=== PATIENT | male | born 1960 | race Native Hawaiian/Other Pacific Islander ===

== ENCOUNTER 2020-11-18 16:56 | Emergency (ER) | payer OTHER ==
[~2020-11-18] VITALS: Ht 172.7 cm; Wt 89.1 kg
[2020-11-18 16:56] VITALS: BP 175/88; TEMP 99.5
[2020-11-18 17:30] LABS: PLATELET COUNT 377 K/uL (142-355)
[2020-11-18 17:38] LABS: POTASSIUM 4.4 mmol/L (3.6-5.2)
[2020-11-18] MEDS ORDERED: ASPIRIN PO (22:12)
[2020-11-18] MEDS ORDERED: LIPITOR10 MG PO (22:13)
[2020-11-18] MEDS ORDERED: CLON1TAB18 PO (22:19)
[2020-11-18] MEDS ORDERED: B-12 COMPL1000 MCG/M INJ (22:21)
[2020-11-18] MEDS ORDERED: DIVA250T2 PO (22:24)
[2020-11-18] MEDS ORDERED: ACID CONTROL20 MG PO (22:26)
[2020-11-18] MEDS ORDERED: EQL IRON SUPPL325 M1 PO (22:27)
[2020-11-18] MEDS ORDERED: JANUVIA100 MG PO (22:31)
[2020-11-18] MEDS ORDERED: LISITAB PO (22:34)
[2020-11-18] MEDS ORDERED: METF100038 PO (22:36)
[2020-11-18] MEDS ORDERED: OLANZAPINE10 M2 PO (22:39)
[2020-11-18] MEDS ORDERED: SEROQUEL400 MG PO (22:42)
[2020-11-18] MEDS ORDERED: RISP1TAB PO (22:44)
[2020-11-18] MEDS ORDERED: VITAMIN B-121000 MC2 PO (22:47)
[2020-11-18] MEDS ORDERED: TYLENOL325 MG PO (22:49)
== END 2020-11-18 18:23 | disposition still patient (30) ==
LOC: ED 17:12
PROVIDERS: Hospitalist
DX: F25.8 Other schizoaffective disorders (principal); Z11.52 Encounter for screening for COVID-19; Z04.6 Encounter for general psychiatric examination, requested by authority
CPT/HCPCS: 80053; 80164; 85007; 85027; 87635; 93005; 99283; J0696; U0003

== ENCOUNTER 2021-03-19 11:05 | Emergency (ER) | payer OTHER ==
[~2021-03-19] VITALS: Ht 172.7 cm; Wt 89.8 kg
[2021-03-19 11:05] VITALS: BP 109/64; TEMP 97.6
[~2021-03-19 11:05] MED LIST: ACID CONTROL20 MG PO; ARIPIPRAZOLE10 MG PO; ASPIRIN PO; B-12 COMPL1000 MCG/M INJ; BUSP15TAB2 PO; CHOL100034 PO; CLON0.5T36 PO; CLON1TAB18 PO; DIVA250T PO; DIVA250T2 PO; EQL IRON SUPPL325 M1 PO; FLUOXETINE20 MG PO; JANUVIA100 MG PO; LIPITOR10 MG PO; LISITAB PO; METF100038 PO; OLANZAPINE10 M2 PO; RISP1TAB PO; SEROQUEL400 MG PO; TYLENOL325 MG PO; VITAMIN B-121000 MC2 PO
[2021-03-19 11:35] LABS: PLATELET COUNT 351 K/uL (142-355)
[2021-03-19 11:41] LABS: POTASSIUM 3.9 mmol/L (3.6-5.2)
[2021-03-19] MEDS ORDERED: VITAMIN D350000 UNIT PO (13:00)
[2021-03-19] MEDS ORDERED: CLON1TAB18 PO (13:01)
[2021-03-19] MEDS ORDERED: SERT100T PO (13:02)
[2021-03-19] MEDS ORDERED: CRESTOR5 MG PO (13:03)
[2021-03-19] MEDS ORDERED: RISP25IN IM (13:05)
== END 2021-03-19 12:32 | disposition still patient (30) ==
LOC: ED 11:05
PROVIDERS: Emergency Medicine
DX: F20.89 Other schizophrenia (principal); F31.89 Other bipolar disorder; F22 Delusional disorders; R45.1 Restlessness and agitation; Z11.52 Encounter for screening for COVID-19; Z04.6 Encounter for general psychiatric examination, requested by authority
CPT/HCPCS: 80053; 81000; 85027; 87635; 93005; 99283; U0003

== ENCOUNTER 2022-07-14 18:25 | Emergency (ER) | payer OTHER ==
[~2022-07-14] VITALS: Ht 172.7 cm; Wt 87.1 kg
[2022-07-14 18:25] VITALS: BP 133/61; TEMP 98.2
[~2022-07-14 18:25] MED LIST changes: +CRESTOR5 MG PO; +DIVALPROEX250 MG PO; +DIVALPROEX500 MG PO; +FOLI1TAB26 PO; +HALO5TAB10 PO; +OLANZAPINE10 MG PO; +RISP25IN IM; +RISP50IN IM; +SERT100T PO; +VITAMIN D350000 UNIT PO
[2022-07-14 18:53] LABS: PLATELET COUNT 269 K/uL (142-355)
[2022-07-14 18:59] LABS: POTASSIUM 4.2 mmol/L (3.6-5.2)
[2022-07-14] MEDS ORDERED: GRALISE300 MG PO (21:15)
[2022-07-14] MEDS ORDERED: JANUVIA100 MG PO (21:17)
[2022-07-14] MEDS ORDERED: MOBIC7.5 M1 PO (21:20)
[2022-07-14] MEDS ORDERED: RISP2TAB2 PO (21:34)
[2022-07-14] MEDS ORDERED: ZYPREXA ZYDI10 MG PO (21:36)
[2022-07-14] MEDS ORDERED: TYLENOL325 MG PO (21:39)
[2022-07-14] MEDS ORDERED: IPRATROPIUM/ INH (21:40)
[2022-07-14] MEDS ORDERED: HALO5INJ3 PO (21:44)
== END 2022-07-14 20:07 | disposition other institution (70) ==
LOC: ED 18:25
PROVIDERS: Family Medicine
DX: F29 Unspecified psychosis not due to a substance or known physiological condition (principal); Z02.79 Encounter for issue of other medical certificate
CPT/HCPCS: 36415; 80053; 85027; 87635; 93005; 99283; U0003